=== PATIENT | male | born 1955 | race African-American/Black ===

== ENCOUNTER 2018-08-31 07:09 | Observation (INO) | payer OTHER ==
--- NOTE | 2018-08-31 07:53 | RAD ---
SINGLE VIEW OF THE CHEST: COMPARISON: 02/03/2016. HISTORY: Shortness of breath for several days. FINDINGS: A single view of the chest shows an enlarged but stable cardiomediastinal silhouette. The pacemaker is unchanged in position. There is no evidence of consolidation, mass, or pleural effusion. A bulle t projects over the mid thorax. IMPRESSION: No evidence of acute cardiopulmonary disease. POS: [facility]
[2018-08-31 07:55] LABS: #Basophils 0.1 thou/uL (0.0-0.2); #Eosinphils 0.1 thou/uL (0.0-0.7); #Lymphocytes 1.5 thou/uL (1.20-3.40); #Monocytes 1.1 thou/uL (0.11-0.59); #Neutrophils 10.6 thou/uL (1.40-6.50); %Basophils 0.8 % (0.0-1.0); %Eosinophils 0.6 % (0.0-10.0); %Monocytes 8.2 % (0.0-10.0); %Neutrophils 79.3 % (42.0-75.0); Hemoglobin 16.5 g/dL (14.0-18.0); Mean Corpuscular HGB CONC 32.5 g/dL (32.0-36.0); Mean Corpuscular Hemoglobin 29.9 pg (27.0-31.0); Mean Platelet Volume 9.9 fL (7.4-10.4); Platelet Count 176 thou/uL (130-400); RBC Distribution Width 14.4 % (11.5-14.5); White Blood Cell (WBC) Count 13.4 thou/uL (4.8-10.8)
[2018-08-31 08:10] LABS: ALT (SGPT) 26 U/L (8-55); AST (SGOT) 25 U/L (5-34); Albumin 4.3 g/dL (3.4-4.8); Alkaline Phosphatase 119 U/L (40-150); Anion Gap 17 mmol/L (10-20); BUN (Urea Nitrogen) 30 mg/dL (8.4-25.7); Bilirubin, Total 0.5 mg/dL (0.2-1.2); Calc. Creatinine Clearance 0 mL/min (70-130); Calcium 9.6 mg/dL (7.8-10.44); Carbon Dioxide 24 mmol/L (23-31); Chloride 102 mmol/L (98-107); Estimated GFR-MDRD 38; Globulin 4.4 g/dL (2.4-3.5); Glucose 112 mg/dL (80-115); Potassium 3.9 mmol/L (3.5-5.1); Protein, Total 8.7 g/dL (5.8-8.1); Sodium 139 mmol/L (136-145)
[2018-08-31 08:34] LABS: CKMB 5.6 ng/mL (0-6.6)
[2018-08-31] MEDS ORDERED: Aspirin Chewable 81 MG TAB ONE (09:04)
--- NOTE | 2018-08-31 09:12 | ULT ---
ULTRASOUND WITH DOPPLER DUPLEX VENOUS LOWER EXTREMITY RIGHT CPT: 13429 ICD-10-PCS: B54D HISTORY: Right lower extremity pain. TECHNIQUE: Color flow Doppler, spectral waveform analysis of pulsed Doppler, and gorman-scale imaging with dinah alvin and augmentation, were used to evaluate the right common femoral, femoral, popliteal, posterior tibial, and superficial femoral, veins; and the proximal portions of the profunda femoral and greater saphenous, veins. FINDINGS: There is appropriate compressibility and flow is documented within the deep venous structures of the right lower extremity. Dsp Engineer notes sluggish flow during the exam. There is evidence of soft tissue edema. IMPRESSION: 1. No discrete DVT of the right lower extremity is documented. 2. Soft tissue edema. Correlate clinically. POS: [facility]
[2018-08-31] MEDS ORDERED: Acetaminophen 500 MG TAB ONE (09:34)
[2018-08-31 10:32] LABS: Hemoglobin A1c 5.9 % (4.0-6.0)
[2018-08-31 11:00] LABS: Amphetamine Not Detected (NotDetected); Barbiturates Screen Not Detected (NotDetected); Benzodiazepine Screen Not Detected (NotDetected); Cocaine Metabolite Screen Not Detected (NotDetected); Medtox Control Line Valid? VALID (VALID); Medtox Reader # READER 4; Methadone Not Detected (NotDetected); Methamphetamine Not Detected (NotDetected); Opiate Screen Not Detected (NotDetected); Oxycodone Screen Not Detected (NotDetected); Phencyclidine (PCP) Not Detected (NotDetected); THC/Cannabinoid Screen Not Detected (NotDetected); Tricyclic Screen Not Detected (NotDetected)
--- NOTE | 2018-08-31 11:15 | PDOC.FPRHP ---
- History of Present Illness Chief Complaint: Rt knee pain, chest pain History of Present Illness: 62 yo M with PMH of CHF s/p AICD and pacemaker placement and angina presents to ED with complaint of R knee pain and chest pain that began yesterday evening. Patient reports his left knee began hurting 2 days ago, and his R knee began hurting last night and became swollen and painful, so much so that he cannot walk on it. No history of trauma or this happening previously, denies hx of STIs. Denied fevers. He reports substernal chest pressure that is non-radiating, worse when he moves his right knee. He reports he has been SOB when walking around. Denies nausea/ vomiting, reports diaphoresis on his neck at night. Chest pain had resolved by the time he arrived to ED, however with moving his leg it worsens. He also reports he has recently lost about 20 lbs and "my neck sweats" at night, regardless of temperature of environment. In ED, EKG showed paced rhythm. CXR showed stable cardiomegaly. US of RLE negative DVT, showed soft tissue edema. Trop indeterminate. - Allergies/Adverse Reactions Allergies Allergy/AdvReac Type Severity Reaction Status Date / Time No Known Drug Allergies Allergy Verified 06/30/15 13:59 - Home Medications Medication Instructions Recorded Confirmed Type Clopidogrel Bisulfate [Plavix] 75 mg PO DAILY #0 tab 04/06/15 08/31/18 Rx Amiodarone [Cordarone] 200 mg PO DAILY #0 tab 09/02/15 08/31/18 Rx Carvedilol [Coreg] 12.5 mg PO BID-WM 08/31/18 08/31/18 History Furosemide [Lasix] 80 mg PO BID 08/31/18 08/31/18 History - History PMHx: CHF with EF 10-15% in 2016, s/p AICD and pacemaker; HTN, Angina PSHx: AICD/pacemaker placement FHx: father of [place] and CHF, mGF of unknown cancer, DM in father family Social: reports no cocaine use for past 1 year and no IVDA; alcohol about 12 beers/week, last one was 06/28 around 1400; current every day smoker 1/4 pack, 10 PY history - Review of Systems General: denies: fever/chills, weight/appetite/sleep changes (had decreased weight of 20 lbs) Eyes: reports: vision changes. denies: eye pain ENT: reports: nasal congestion, rhinorrhea Respiratory: reports: cough, congestion, shortness of breath, exercise intolerance Cardiovascular: reports: chest pain, edema. denies: palpitation Gastrointestinal: denies: nausea, vomiting, diarrhea, constipation, abdominal pain, GI bleeding Genitourinary: denies: dysuria, polyuria Skin: denies: rashes, lesions Musculoskeletal: reports: tenderness, stiffness, arthritis/arthralgias Neurological: denies: numbness, weakness Psychological: reports: anxiety. denies: depression - Vital signs BP: [123/94] HR: [73] RR: [16] Tmax: [98.1] Pox: [93]% on [RA] Wt: [88 kg] - Physical Exam Constitutional: NAD, awake, alert and oriented HEENT: normocephalic and atraumatic, PERRLA, grossly normal hearing, MMM, oropharynx clear Neck: supple, other (+cervical LAD) Heart: RRR, normal S1/S2, no murmurs/rubs/gallops, pulses present (radial pulses present), other Lungs: CTAB, no respiratory distress, good air movement, no wheezing Abdomen: soft, bowel sounds present, no masses/distention Musculoskeletal: normal tone, other (Rt knee diffusely swollen, warm to touch, no erythema. Excessively painful to palpation or manipulation.) Neurological: no focal deficit Skin: no rash/lesions -Skin: Cap refill prolonged in BLE. BLE cool to touch, unable to palpate dorsalis pedis pulses or posterior tibial artery Heme/Lymphatic: no unusual bruising or bleeding Psychiatric: normal mood and affect, good judgment and insight, intact recent and remote memory FMR H&P: Results - Labs Result Diagrams: 08/31/18 07:37 08/31/18 07:37 Lab results: WBC 13.4 thou/uL (4.8-10.8) H 08/31/18 07:37 Hgb 16.5 g/dL (14.0-18.0) 08/31/18 07:37 Hct 50.6 % (42.0-52.0) 08/31/18 07:37 MCV 92.0 fL (78.0-98.0) 08/31/18 07:37 Plt Count 176 thou/uL (130-400) 08/31/18 07:37 Neutrophils % 79.3 % (42.0-75.0) H 08/31/18 07:37 ESR Westergren 61 mm/hr (Less than 20) 08/31/18 09:25 Sodium 139 mmol/L (136-145) 08/31/18 07:37 Potassium 3.9 mmol/L (3.5-5.1) 08/31/18 07:37 Chloride 102 mmol/L (98-107) 08/31/18 07:37 Carbon Dioxide 24 mmol/L (23-31) 08/31/18 07:37 BUN 30 mg/dL (8.4-25.7) H 08/31/18 07:37 Creatinine 2.13 mg/dL (0.7-1.3) H 08/31/18 07:37 Glucose 112 mg/dL (80-115) 08/31/18 07:37 Calcium 9.6 mg/dL (7.8-10.44) 08/31/18 07:37 Total Bilirubin 0.5 mg/dL (0.2-1.2) 08/31/18 07:37 AST 25 U/L (5-34) 08/31/18 07:37 ALT 26 U/L (8-55) 08/31/18 07:37 Alkaline Phosphatase 119 U/L (40-150) 08/31/18 07:37 CK-MB (CK-2) 5.6 ng/mL (0-6.6) 08/31/18 07:37 C-Reactive Protein 3.05 mg/dL (= or < 0.5) H 08/31/18 09:25 B-Natriuretic Peptide 331.0 pg/mL (0-100) H 08/31/18 07:41 Serum Total Protein 8.7 g/dL (5.8-8.1) H 08/31/18 07:37 Albumin 4.3 g/dL (3.4-4.8) 08/31/18 07:37 - EKG Interpretation EKG: paced rhythm - Radiology Interpretation Chest x-ray Status: report reviewed by me Additional comment: stable cardiomegaly US - venous Status: report reviewed by me Additional comment: No DVT, +soft tissue edema FMR H&P: A/P - Problem List (1) Chest pain Current Visit: No Status: Acute Code(s): R07.9 - CHEST PAIN, UNSPECIFIED Qualifiers: Chest pain type: precordial chest pain Comment: Prob musculoskeletal (2) Congestive heart failure Current Visit: Yes Status: Chronic Code(s): I50.9 - HEART FAILURE, UNSPECIFIED (3) Tobacco abuse Current Visit: No Status: Chronic Code(s): Z72.0 - TOBACCO USE Comment: Recommend permanent cessation. He has cut down signficantly over the last 5 months. Occasional cannabis use as well. (4) CKD (chronic kidney disease) stage 3, GFR 30-59 ml/min Current Visit: No Status: Chronic Comment: Stable (5) HTN (hypertension) Current Visit: No Status: Chronic Code(s): I10 - ESSENTIAL (PRIMARY) HYPERTENSION - Plan Elevated Troponins, likely demand ischemia -CHF with EF 10-15% in 2016; s/p AICD and pacemaker placement -no evidence fluid overload on CXR -No tachycardia, so unlikely to be a PE -EKG shows paced rhythm -Patient has substernal chest pain, and SOB w/ exertion -Trop .101, trending -BNP 331 -Pt reports history of angina -Consulted cardiology Dr. Andersen, recommendations appreciated -continue furosemide, carvedilol, amiodarone, an clopidogrel Rt knee edema -No history of trauma -Concern for septic arthritis with leukocytosis, however he is afebrile; consider Gout vs CPPD -XR 2V pending -Arthrocentesis: cell count with dif, crystals, and g stain with culture pending -Sono RLE neg for DVT CKD3B -aware -heparin for PPX HTN -Continue home medication Tobacco Abuse -cessation Alcohol use -ASE protocol Hx Cocaine use -last use 1 yr ago -UDS neg Dispo: admit to tele obs Code: Full code PCP: in [place] Diet: HH FMR H&P: Upper Level - Pertinent history 62 y/o M with CAD, HLD, CKD, CHF, afib, and hx/o cocaine abuse presenting from out of town with chest and knee pain. Knee pain began yesterday on R and is swollen. States he has chest pain when he moves this knee, and does not have chest pain at any other time, although he does have a history of angina. States his butt trimmer is in [place] and follows with him, but does not have a PCP. States he stopped cocaine. Denies any SOB, palpitations, dizziness, decreased activity, fatigue, weakness, and exertional dyspnea. - Pertinent findings PHYSICAL EXAM: GEN: NAD CARDIO: RRR, no MRG LUNGS: lungs CTAB, no wheezes, ronchi MSK: R knee effusion and ttp, pulses not palpable in LE Troponins: 0.1 and 0.108. LE US: Soft tissue swelling, no evidence of DVT CXR: no evidence of acute process CR increased and GFR abnormal: CKD EKG: No ST changes - Plan Date/Time: 08/31/18 1115 Shayan Thorne have evaluated this patient and agree with findings/plan as outlined by multicultural internship resident. Pertinent changes/additions are listed here. 1. Stable Angina: CAD per history. Will follow indeterminate troponins and consult cardiology. EKG reviewed and no ST segment changes. Uncertain why he would have chest pain when moving his R leg. 2. Joint Effusion: arthrocentesis performed in ED and samples sent for cell counts, culture, and crystal analysis. Pseudogout vs septic arthritis vs tissue injury. US LE have r/o DVT, but did report soft tissue edema. 3. CAD: As Above 4. HRrEF: 10-15% in 2016, however was using cocaine at that time. Will order ECHO and cardiology. BNP 330 which is likely near baseline. Not fluid overloaded or in respiratory distress. 5. CKD4: GFR CKD3B stage today. Will trend renal function labs. Gentle fluids as needed in case there is acute injury also, will hold fluids until after ECHO. 6. Hx/o substance abuse: UDS neg and has reportedly stopped cocaine abuse 7. Impaired circulation: Pulses not palpable in LE, cold, and frequent calf cramping. Will consider further workup regarding PVD. Limbs not ischemic. 8. ETOH abuse: states 3 drinks QOD. ASE protocol. Addendum - Attending - Attending Attestation Date/Time: 08/31/18 9123 I personally evaluated the patient and discussed the management with Dr. Lane I agree with the History, Examination, Assessment and Plan documented above with any addition or exceptions noted below. Atypical CP with history angina and significant HFref low Ef 10-15 % s/p AICD, r/o septic joint. Consultation with Cardiology control BS expectant management.
[2018-08-31 11:34] LABS: Troponin I 0.108 ng/mL (< 0.028)
[2018-08-31] MEDS ORDERED: Lidocaine 1% w/Epinephrine 1:100K 20 ML VIAL ONE (11:40)
[2018-08-31 12:25] LABS: BF Color Yellow; Body Fluid Source Synovial Fluid; Clarity Cloudy/Turbid (Clear); Tube # 1
[2018-08-31 12:27] LABS: RBC Count-Automated 22000 /cumm; WBC/NonHematic-Auto 18580 /cumm
[2018-08-31 12:50] LABS: BF Segmented Neutrophils 86 %; Cell Count Non Hematic 14 %
--- NOTE | 2018-08-31 13:32 | PDOC.EVN ---
Event Note - Event Note Event Note: Procedure: Knee arthrocentesis Date: 08/31/18 @ 1200 Physician: Dr. Becka Lawton Attending: Dr. Yin overseeing Consent for Rt knee Arthrocentesis, Risks and benefits discussed with patient and written and verbal consent obtained. The R Knee was prepped. Anesthesia: 5 cc of 2% Lidocaine with epi. Site prepared in sterile fashion. Wheel of lidocaine placed. Lidocaine then introduced into the joint space. Fluid was removed from the joint space. Samples were sent to the lab for analysis. Clear yellow colored was fluid removed. Amount of fluid removed: 30 cc. Estimated Blood Loss: minimal. Complications: The patient tolerated the procedure well without complications. Hilary Lawton, PGY-1
[2018-08-31] MEDS ORDERED: Heparin 5,000 UNITS/ML VIAL SC SCH (15:00)
[2018-08-31 17:49] LABS: Troponin I 0.074 ng/mL (< 0.028)
[2018-08-31] MEDS: Carvedilol 6.25 MG TAB PO SCH (19:10)
[2018-08-31] MEDS ORDERED: Furosemide 80 MG TAB PO SCH (20:15)
[2018-08-31] MEDS: Heparin 5,000 UNITS/ML VIAL SC SCH (20:38)
[2018-08-31] MEDS: Acetaminophen 325 MG TAB PO PRN (21:57)
--- NOTE | 2018-09-01 04:56 | CON ---
DATE OF CONSULTATION: HISTORY OF PRESENT ILLNESS: The patient is a 62-year-old gentleman with a history of cardiomyopathy, who presents with recurrent chest discomfort. The patient has a long history of cardiomyopathy. He has had previously placed of an automatic implantable cardiac defibrillator. The patient has been in multiple occasions with chest pain. He has declined to undergo cardiac catheterization. He stated yesterday that his knee started hurting him. He subsequently developed mid sternal chest discomfort. This lasted for several hours. The patient denies having any present chest discomfort. PAST MEDICAL HISTORY: 1. Cardiomyopathy. 2. Hypertension. 3. Chronic renal insufficiency. 4. Hypertension. 5. Dyslipidemia. 6. Bipolar disorder. PAST SURGICAL HISTORY: None. MEDICATIONS: See nursing list. SOCIAL HISTORY: The patient continues to smoke. He drinks excessive amounts of alcohol. He denies any recent cocaine use. FAMILY HISTORY: Strong family history of heart disease. ALLERGIES: NO KNOWN DRUG ALLERGIES. REVIEW OF SYSTEMS: Ten-point system otherwise unremarkable. PHYSICAL EXAMINATION: GENERAL: Middle-aged gentleman, no acute distress. VITAL SIGNS: Blood pressure of 124/94. NECK: Showed no jugular venous distention. No carotid bruits. LUNGS: Clear to auscultation. HEART: Regular rate and rhythm. Normal S1 and S2. No murmurs. ABDOMEN: Distended. EXTREMITIES: Showed no edema. VASCULAR: Radial pulse 2+. LABORATORY DATA: Sodium 139, potassium 3.9, chloride 102, bicarbonate 24, BUN 30, creatinine is 2.1. Troponin 0.108. White blood cell count 13.4, hemoglobin 16.5, hematocrit 50.6, and platelets 176. EKG revealed normal sinus rhythm with an electronic ventricular pacemaker. IMPRESSION: 1. Chest pain. 2. Cardiomyopathy. 3. Hypertension. 4. History of automated implantable cardioverter-defibrillator placement. 5. History of ventricular tachycardia. 6. Tobacco abuse. 7. Substance abuse. This gentleman has a history of a cardiomyopathy. He presents with chest discomfort with knee pain. The patient previously declined to undergo an invasive evaluation. Would monitor the patient. Serial cardiac enzymes will be obtained. We will follow this patient with you through his hospitalization. Job ID: [id number] MTDD
--- NOTE | 2018-09-01 05:25 | PDOC.FM ---
- Subjective Subjective: Patient states his pain is increased this AM to 710, was feeling better yesterday after the arthrocentesis. No other complaints this morning. - Objective Vital Signs & Weight: Vital Signs (12 hours) Temp Pulse Resp BP BP Pulse Ox 09/01/18 05:03 97.8 F 62 14 117/75 96 08/31/18 21:56 139/88 08/31/18 19:36 97.5 F L 63 16 139/88 98 08/31/18 17:56 120/85 Weight Weight 82.1 kg I&O: 08/30/18 08/31/18 09/01/18 06:59 06:59 06:59 Intake Total 480 Balance 480 Result Diagrams: 09/01/18 04:40 09/01/18 04:40 Phys Exam - Physical Examination Constitutional: NAD Respiratory: no wheezing, clear to auscultation bilateral Cardiovascular: RRR, no significant murmur Gastrointestinal: soft, non-tender, no distention, positive bowel sounds trace pitting edema in ankles bilat, pain and warmth in right knee swelling rt knee, BLE warm but unable to palpate pulses Neurological: moves all 4 limbs Psychiatric: normal affect, A&O x 3 Skin: normal turgor Dx/Plan (1) Chest pain Code(s): R07.9 - CHEST PAIN, UNSPECIFIED Status: Acute Qualifiers: Chest pain type: precordial chest pain (2) Congestive heart failure Code(s): I50.9 - HEART FAILURE, UNSPECIFIED Status: Chronic (3) Tobacco abuse Code(s): Z72.0 - TOBACCO USE Status: Chronic (4) CKD (chronic kidney disease) stage 3, GFR 30-59 ml/min Status: Chronic (5) HTN (hypertension) Code(s): I10 - ESSENTIAL (PRIMARY) HYPERTENSION Status: Chronic - Plan Plan: Elevated Troponins, likely demand ischemia -CHF with EF 10-15% in 2016; s/p AICD and pacemaker placement -no evidence fluid overload on CXR -No tachycardia, so unlikely to be a PE -EKG shows paced rhythm -Patient has substernal chest pain, and SOB w/ exertion -Trops downtrending -BNP 331 -Pt reports history of angina -Consulted cardiology Dr. Andersen, recommendations appreciated -Patient has previously refused invasive evaluation -continue furosemide, carvedilol, amiodarone, an clopidogrel Rt knee edema -No history of trauma -Concern for septic arthritis with leukocytosis, however he is afebrile; consider Gout vs CPPD -Rt knee XR 2V pending -Arthrocentesis: cell count with dif, crystals, and g stain with culture pending -WBC <25,000, therefore unlikely to be a septic joint; culture pending -Sono RLE neg for DVT CKD3B -aware -BUN/Cr slight uptrend today, continue to monitor -heparin for PPX Hypokalemia, slight -Monitor and replace as needed HTN -Continue home medication Tobacco Abuse -cessation Alcohol use -ASE protocol Hx Cocaine use -last use 1 yr ago -UDS neg Dispo: admit to tele obs Code: Full code PCP: in [place] Diet: CRESCENCIO Addendum - Attending - Attending Attestation Date/Time: 09/01/18 0391 I personally evaluated the patient and discussed the management with Dr. Weir I agree with the History, Examination, Assessment and Plan documented above with any addition or exceptions noted below.will start prednisone today and increase ambulation synovial fluid r/o septic jt, negative crystals feel working DX with bilateral knee symptoms as Rheumatoid consider reactive arthritis as well. Rec f/u with Rheumatology as outpatient. Observe overnight for response steroids.
[2018-09-01] MEDS: Acetaminophen 325 MG TAB PO PRN ×4 (05:38→23:25)
[2018-09-01 06:26] LABS: #Eosinphils 0.2 thou/uL (0.0-0.7); #Lymphocytes 1.7 thou/uL (1.20-3.40); #Monocytes 0.9 thou/uL (0.11-0.59); #Neutrophils 6.2 thou/uL (1.40-6.50); %Basophils 0.5 % (0.0-1.0); %Eosinophils 1.9 % (0.0-10.0); %Monocytes 10.1 % (0.0-10.0); %Neutrophils 68.4 % (42.0-75.0); Hemoglobin 15.2 g/dL (14.0-18.0); Mean Corpuscular HGB CONC 32.4 g/dL (32.0-36.0); Mean Corpuscular Hemoglobin 30.3 pg (27.0-31.0); Mean Corpuscular Volume 93.5 fL (78.0-98.0); Mean Platelet Volume 10.9 fL (7.4-10.4); Platelet Count 142 thou/uL (130-400); RBC Distribution Width 14.6 % (11.5-14.5); Red Blood Cell (RBC) Count 5.03 mill/uL (4.70-6.10); White Blood Cell (WBC) Count 9.1 thou/uL (4.8-10.8)
[2018-09-01 06:45] LABS: Anion Gap 16 mmol/L (10-20); BUN (Urea Nitrogen) 36 mg/dL (8.4-25.7); Calc. Creatinine Clearance 39 mL/min (70-130); Calcium 9.7 mg/dL (7.8-10.44); Carbon Dioxide 24 mmol/L (23-31); Chloride 101 mmol/L (98-107); Estimated GFR-MDRD 35; Glucose 94 mg/dL (80-115); Potassium 3.4 mmol/L (3.5-5.1); Sodium 138 mmol/L (136-145)
[2018-09-01] MEDS ORDERED: Potassium Chloride 20 MEQ TAB PO SCH (08:45)
[2018-09-01] MEDS: Carvedilol 6.25 MG TAB PO SCH ×2 (09:27→18:11)
[2018-09-01] MEDS: Amiodarone 200 MG TAB PO SCH (09:28)
[2018-09-01] MEDS: Heparin 5,000 UNITS/ML VIAL SC SCH ×2 (09:28→21:47)
[2018-09-01] MEDS: Furosemide 80 MG TAB PO SCH ×2 (09:28→14:36)
[2018-09-01] MEDS: Aspirin 325 mg Enteric Coated Tablet PO SCH (09:28)
[2018-09-01] MEDS: Clopidogrel Bisulfate 75 MG TAB PO SCH (09:28)
--- NOTE | 2018-09-01 10:17 | RAD ---
TWO VIEW RIGHT KNEE: Indication: Pain. FINDINGS: There is heterotopic density adjacent the medial femoral condyle. Moderate joint capsular distension is seen. There is mild osteoarthritis. Vascular calcifications are present. IMPRESSION: 1. Corticated appearing heterotopic density adjacent the medial femoral condyle which may therefore r elate to a remote process. Correlate clinically. 2. There is moderate joint capsular distention of the suprapatellar bursa. POS: [facility]
[2018-09-01] MEDS ORDERED: predniSONE 20 MG TAB PO SCH (13:00)
[2018-09-01 14:14] VITALS: BMI 29.2
[2018-09-02] MEDS ORDERED: Acetaminophen 325 MG TAB PO SCH (04:45)
--- NOTE | 2018-09-02 05:57 | PDOC.FM ---
- Subjective Subjective: Patient reports knee pain is 5/10 today, improved from yesterday with the steroids and pain management. Patient needs a cane to be able to get up the stairs at his home. - Objective Vital Signs & Weight: Vital Signs (12 hours) Temp Pulse Resp BP BP Pulse Ox 09/02/18 04:00 97.8 F 64 19 147/88 H 147/88 H 97 09/01/18 23:52 98.0 F 64 19 116/69 116/69 96 09/01/18 19:46 97.9 F 64 18 115/65 94 L Weight Admit Weight 81.012 kg Weight 183.5 g I&O: 08/31/18 09/01/18 09/02/18 06:59 06:59 06:59 Intake Total 880 860 Output Total 300 Balance 880 560 Result Diagrams: 09/02/18 04:22 09/02/18 04:22 Phys Exam - Physical Examination Constitutional: NAD Respiratory: no wheezing, no rales Cardiovascular: RRR, no significant murmur Gastrointestinal: soft, non-tender, no distention, positive bowel sounds Musculoskeletal: pulses present swelling around right knee, no erythema. Tender to palpation. Patient seems to be able to move leg with less pain today Neurological: non-focal, moves all 4 limbs Psychiatric: normal affect, A&O x 3 Skin: normal turgor, cap refill <2 seconds Dx/Plan (1) Knee pain, acute Code(s): M25.569 - PAIN IN UNSPECIFIED KNEE Status: Acute (2) Chest pain Code(s): R07.9 - CHEST PAIN, UNSPECIFIED Status: Acute Qualifiers: Chest pain type: precordial chest pain (3) Congestive heart failure Code(s): I50.9 - HEART FAILURE, UNSPECIFIED Status: Chronic (4) Cocaine abuse Code(s): F14.10 - COCAINE ABUSE, UNCOMPLICATED Status: Resolved (5) Tobacco abuse Code(s): Z72.0 - TOBACCO USE Status: Chronic (6) CKD (chronic kidney disease) stage 3, GFR 30-59 ml/min Status: Chronic (7) HTN (hypertension) Code(s): I10 - ESSENTIAL (PRIMARY) HYPERTENSION Status: Chronic - Plan Plan: Rt knee swelling, concern for arthritis -No history of recent trauma -Rt knee XR 2V: Joint capsular distension and old injury -Arthrocentesis: cell count with dif, crystals, and g stain with culture -WBC <25,000, therefore unlikely to be a septic joint; culture NGTD -No crystals, unlikely to be Gout/CPPD -Rheumatoid Arthritis panel pending -Cane today, work on mobility prior to discharge Elevated Troponins, likely demand ischemia -CHF with EF 10-15% in 2016; s/p AICD and pacemaker placement -no evidence fluid overload on CXR -No tachycardia, so unlikely to be a PE -EKG shows paced rhythm -Patient has substernal chest pain, and SOB w/ exertion -Trops downtrending -BNP 331 -Pt reports history of angina -Consulted cardiology Dr. 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 Yolie Lawton I agree with the History, Examination, Assessment and Plan documented above with any addition or exceptions noted below. Patient feeling better ambulating better will arrange for cane and establish with PCP. Rec short term prednisone pending further outpt f/u results. BNP at f/u monitor RFT . Rheumatology f/u as outpat.
[2018-09-02 06:01] LABS: Anion Gap 16 mmol/L (10-20); BUN (Urea Nitrogen) 43 mg/dL (8.4-25.7); Calc. Creatinine Clearance 0 mL/min (70-130); Calcium 9.9 mg/dL (7.8-10.44); Carbon Dioxide 22 mmol/L (23-31); Chloride 102 mmol/L (98-107); Estimated GFR-MDRD 32; Glucose 110 mg/dL (80-115); Potassium 4.3 mmol/L (3.5-5.1); Sodium 136 mmol/L (136-145)
[2018-09-02 06:19] LABS: #Basophils 0.1 thou/uL (0.0-0.2); #Lymphocytes 0.8 thou/uL (1.20-3.40); #Monocytes 0.9 thou/uL (0.11-0.59); #Neutrophils 9.9 thou/uL (1.40-6.50); %Basophils 0.6 % (0.0-1.0); %Eosinophils 0.2 % (0.0-10.0); %Monocytes 7.7 % (0.0-10.0); %Neutrophils 84.5 % (42.0-75.0); Hemoglobin 15.3 g/dL (14.0-18.0); Mean Corpuscular Hemoglobin 30.4 pg (27.0-31.0); Mean Corpuscular Volume 94.9 fL (78.0-98.0); Mean Platelet Volume 10.6 fL (7.4-10.4); Platelet Count 152 thou/uL (130-400); Platelet Morphology Comment Appears Adequate; RBC Distribution Width 14.6 % (11.5-14.5); RBC Morphology Normal; Red Blood Cell (RBC) Count 5.04 mill/uL (4.70-6.10); White Blood Cell (WBC) Count 11.7 thou/uL (4.8-10.8)
[2018-09-02] MEDS ORDERED: predniSONE 20 MG TAB PO SCH (08:00)
[2018-09-02] MEDS: Aspirin 325 mg Enteric Coated Tablet PO SCH (08:13)
[2018-09-02] MEDS: Furosemide 80 MG TAB PO SCH (08:13)
[2018-09-02] MEDS: Carvedilol 6.25 MG TAB PO SCH (08:13)
[2018-09-02] MEDS: Clopidogrel Bisulfate 75 MG TAB PO SCH (08:14)
[2018-09-02] MEDS: Heparin 5,000 UNITS/ML VIAL SC SCH (08:14)
[2018-09-02] MEDS: Amiodarone 200 MG TAB PO SCH (08:14)
[2018-09-02] MEDS ORDERED: traMADol HCl 50 MG TAB PO PRN (08:16)
[2018-09-02] MEDS ORDERED: hydrALAZINE 25 MG TAB PO SCH (09:00)
[2018-09-02] MEDS ORDERED: Isosorbide Dinitrate 20 MG TAB PO SCH (09:00)
[2018-09-02 11:46] VITALS: BP 128/88; TEMP 98
[2018-09-02 17:29] LABS: CCP IgG Antibody 0.6 EliAU/mL (<7 Negative); EliA RAS New Method **** NEW METHOD ****; Rheumatoid Factor IgM Antibody 3.3 IU/mL (<3.5 Negative)
--- NOTE | 2018-09-04 05:14 | DIS ---
DATE OF ADMISSION: 08/31/2018 DATE OF DISCHARGE: 09/02/2018 ADMITTING ATTENDING: Shekhar Yin M.D. DISCHARGE ATTENDING: Dr. Helio Yin M.D. RESIDENT: Hilary Lawton M.D. CONSULTS: Cardiology, Dr. Leonard Andersen on 08/31/2018. PROCEDURES: 1. Chest x-ray 08/31/2018 showed no acute cardiopulmonary process. 2. Vascular ultrasound 08/31/2018, no evidence of DVT in the right lower extremity. Soft tissue edema present. 3. Knee x-ray, 09/01/2018. a. Corticated appearing heterotopic density adjacent to the medial femoral condyle. b. Moderate joint capsular distention of the suprapatellar bursa. 4. Echocardiogram 09/02/2018 showed ejection fraction of 15-20 percent. Normal size left atrium. Left ventricular size is moderately increased. Impaired relaxation compatible with diastolic dysfunction. Mild mitral regurge. Pacer wire visualized in the right ventricle. PRIMARY DIAGNOSIS: Inflammatory arthritis of the right knee. SECONDARY DIAGNOSES: 1. Elevated troponin likely secondary to demand ischemia. 2. Acute kidney injury on chronic kidney disease, 3B. 3. Hypokalemia. 4. Hypertension. 5. Tobacco abuse. 6. Alcohol use. 7. History of cocaine use. DISCHARGE MEDICATIONS: 1. Amiodarone 200 mg p.o. daily. 2. Carvedilol 25 mg b.i.d. with meals. 3. Clopidogrel 75 mg p.o. daily. 4. Furosemide 80 mg p.o. b.i.d. 5. Hydralazine 37.5 mg p.o. t.i.d. 6. Isordil 20 mg p.o. t.i.d. 7. Prednisone 40 mg p.o. with breakfast, take 40 mg for five days, then 20 mg on day 6 through 9 and then 10 mg on days 10 through 13. 8. Tramadol 50 mg p.o. q.6 hours p.r.n. for pain. 9. Clopidogrel 75 mg p.o. daily. 10. Amiodarone 200 mg p.o. daily. DISCONTINUED MEDICATIONS: None. HISTORY OF PRESENT ILLNESS AND HOSPITAL COURSE: The patient is a 62-year-old male with past medical history of congestive heart failure status post AICD and pacemaker placement and angina, who presented to the ED with complaint of right knee pain and chest pain that began the evening prior. The patient reports his left knee had started hurting 2 days ago and that had improved. His right knee began hurting last night and became swollen and painful so much so that he cannot walk on it. No history of trauma. He denied history of sexually transmitted infection. Denied fevers. He also reported a substernal chest pressure that was nonradiating, worse when he moved his right knee. He reports he had been having increased shortness of breath with exertion. Denied nausea or vomiting. Reported diaphoresis on his neck at night. Chest pain had resolved by the time he arrived to the ED; however, it returns when he moves his leg. He also reported he recently lost about 20 pounds. In the ED, EKG showed paced rhythm. Chest x-ray showed stable cardiomegaly. Ultrasound of right lower extremity was negative for a DVT that showed soft tissue edema. His stroke was indeterminate. X-ray of his knee showed joint capsular distention and old injury. Arthrocentesis revealed that it was not a septic joint and no crystals were seen. This is thought to likely be rheumatoid arthritis. Rheumatoid arthritis workup was started and is pending. Thae patient was discharged with a prednisone taper. Obtained prescription as well as instructions to follow up with his PCP. He was also given a prescription for a cane to assist with ambulation. The patient has congestive heart failure with an ejection fraction of 10-15 percent in 2016. Followup echo during his stay showed improved ejection fraction of 15- 20 percent. His strips were downtrending during his stay. It was likely that indeterminate troponin was elevated secondary to demand ischemia. Dr. Andersen/Matthew was consulted and reported the patient had previously refused invasive evaluation. He was started on Bidil and will follow up with cardiology. The patient developed an JEANETTE on CKD 3B. His BUN and creatinine were slightly up trending. This was thought to be secondary to strict fluid restriction of 1800 mL during his stay, where the patient normally takes more fluids at home. Hypokalemia. His potassium was monitored and replaced as needed. The patient also reported a history of cocaine use, but reported he had discontinued using it 1 year prior. UDS is negative during his stay. Recommend the patient to follow up with PCP to recheck electrolytes with a BMP and for further workup of possible rheumatoid arthritis. DISCHARGE DISPOSITION: Stable. DISCHARGE INSTRUCTIONS: 1. Location: Home. 2. Diet: Heart healthy. 3. Activity: As tolerated. 4. Followup: Follow up with Dr. Hilary Lawton in 7 days at [facility]. Follow up with Dr. Damien Castro on October 13 at 9 a.m. Job ID: [id number] MTDD
== END 2018-09-02 13:53 | disposition home or self-care (01) ==
LOC: ERS 07:09 → ERHOLD 09:09 → 2SW 15:25
PROVIDERS: ADMIT Family Medicine; ATTEND Family Medicine
DX: M17.11 Unilateral primary osteoarthritis, right knee (principal); R79.89 Other specified abnormal findings of blood chemistry; I13.0 Hypertensive heart and chronic kidney disease with heart failure and stage 1 through stage 4 chronic kidney disease, or unspecified chronic kidney disease; N18.3 Chronic kidney disease, stage 3 (moderate); I50.9 Heart failure, unspecified; N17.9 Acute kidney failure, unspecified; I25.118 Atherosclerotic heart disease of native coronary artery with other forms of angina pectoris; E87.6 Hypokalemia; E78.5 Hyperlipidemia, unspecified; F31.9 Bipolar disorder, unspecified; F17.200 Nicotine dependence, unspecified, uncomplicated; Z95.810 Presence of automatic (implantable) cardiac defibrillator; Z79.02 Long term (current) use of antithrombotics/antiplatelets; Z79.52 Long term (current) use of systemic steroids; Z79.899 Other long term (current) drug therapy
CPT/HCPCS: 36415; 71045; 80048; 80053; 80306; 82553; 83036; 83520; 83880; 84484; 85025; 85060; 85652; 86140; 86200; 87070; 87205; 89051; 89060; 93005; 93306; 94760; G0378; J1644; J2001

== ENCOUNTER 2018-11-22 11:22 | Emergency (ER) | payer OTHER ==
[2018-11-22] MEDS ORDERED: Dexamethasone 4 mg/ml Vial ONE (14:33)
[2018-11-22] MEDS ORDERED: HYDROcodone/Acetaminophen 5/325 mg Tablet ONE (14:33)
--- NOTE | 2018-11-22 14:43 | RAD ---
RIGHT KNEE 4 VIEWS: Date: 11/22/18 HISTORY: Right knee pain. COMPARISON: 09/01/18. FINDINGS: Large area of calcific or ossific focus adjacent to the medial femoral epicondylar region, probably a large enthesophyte or focal area of myositis ossificans. No evidence for acute fracture or dislocati on. Minimal increased density in the suprapatellar region, possibly some joint effusion. IMPRESSION: Evidence for some joint effusion. Stable medial femoral area of prominent enthesophyte or focal area of myositis ossificans. No fracture or dislocation, or other acute process. Stable from prior study. POS: TPC
== END 2018-11-22 15:07 | disposition home or self-care (01) ==
LOC: ERS 11:22
DX: M25.561 Pain in right knee (principal); M25.532 Pain in left wrist; M25.571 Pain in right ankle and joints of right foot; F17.210 Nicotine dependence, cigarettes, uncomplicated; I11.0 Hypertensive heart disease with heart failure; I50.9 Heart failure, unspecified; Z79.899 Other long term (current) drug therapy
CPT/HCPCS: J1100

== ENCOUNTER 2020-09-05 11:57 | Inpatient (IN) | payer OTHER ==
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
[2020-09-05 13:32] LABS: #Eosinphils 0.1 thou/uL (0.0-0.7); #Lymphocytes 1.4 thou/uL (1.20-3.40); #Neutrophils 9.7 thou/uL (1.40-6.50); %Basophils 0.1 % (0.0-1.0); %Eosinophils 0.9 % (0.0-10.0); %Lymphocytes 11.8 % (21.0-51.0); %Monocytes 8.1 % (0.0-10.0); %Neutrophils 79.1 % (42.0-75.0); Hemoglobin 16.1 g/dL (14.0-18.0); Mean Corpuscular HGB CONC 33.2 g/dL (32.0-36.0); Mean Corpuscular Hemoglobin 30.4 pg (27.0-31.0); Mean Corpuscular Volume 91.5 fL (78.0-98.0); Platelet Count 144 thou/uL (130-400); RBC Distribution Width 14.2 % (11.5-14.5); White Blood Cell (WBC) Count 12.2 thou/uL (4.8-10.8)
[2020-09-05 13:40] LABS: Anion Gap 18 mmol/L (10-20); BUN (Urea Nitrogen) 54 mg/dL (8.4-25.7); Calc. Creatinine Clearance 0 mL/min (70-130); Carbon Dioxide 20 mmol/L (23-31); Chloride 102 mmol/L (98-107); Potassium 4.2 mmol/L (3.5-5.1); Sodium 136 mmol/L (136-145)
[2020-09-05 13:41] LABS: ALT (SGPT) 26 U/L (8-55); AST (SGOT) 75 U/L (5-34); Albumin 4.2 g/dL (3.4-4.8); Alkaline Phosphatase 89 U/L (40-110); Bilirubin, Total 0.6 mg/dL (0.2-1.2); Calcium 9.5 mg/dL (7.8-10.44); Globulin 4.7 g/dL (2.4-3.5); Glucose 102 mg/dL (80-115); Protein, Total 8.9 g/dL (5.8-8.1)
[2020-09-05 14:05] LABS: CKMB 22.8 ng/mL (0-6.6)
[2020-09-05] MEDS ORDERED: Morphine 2 MG/ML VIAL ONE (14:26)
[2020-09-05] MEDS ORDERED: Furosemide 100 MG/10 ML VIAL SLOW IVP SCH (16:15)
--- NOTE | 2020-09-05 16:17 | PDOC.HHP ---
Hospitalist HPI Foot pain History of Present Illness: Mr. Estrella is a 64-year-old male with past medical history of HFrEF (EF of 15 to 20% on 2019 echo), AICD in place, hypertension, hyperlipidemia, CKD baseline creatinine 2.5 who presents emergency room for bilateral foot pain. Patient reports that over the past few days he has had increased swelling to both of his feet and has severe pain in both great toe joints bilaterally. Patient reports he previously had bilateral knee swelling which he had drained as an outpatient. Reports his pain feels similarly. Denies shortness of breath, chest pain or abdominal pain. Denies fever chills or night sweats. No numbness weakness or paresthesias. Reports his foot pain is worse when he hangs his feet. In emergency room initial vital signs 125/88, 83, 18, 96% on room air, 98.0. H/H 16.1/48.8, WBC 12.2. BUN/CR 54/2.72. Sodium 136, potassium 4.2. Initial troponin 0 0.187, EKG shows paced rhythm with no ST elevation. Patient received 325 mg of aspirin as well as 2 mg of morphine in the emergency room. Allergies/Adverse Reactions: Allergy/AdvReac Type Severity Reaction Status Date / Time No Known Drug Allergies Allergy Verified 08/31/18 18:11 Home Medications: Medication Instructions Recorded Confirmed Type Amiodarone [Cordarone] 200 mg PO DAILY #0 tab 09/02/15 09/06/20 Rx Furosemide [Lasix] 80 mg PO BID 08/31/18 09/06/20 History Isosorbide Dinitrate [Isordil] 20 mg PO TID #45 tab 09/02/18 09/06/20 Rx Carvedilol 25 mg PO BID 09/06/20 09/06/20 History Nitroglycerin 0.4 mg SL Q5MIN PRN #30 tab.subl 09/07/20 Rx predniSONE 20 mg PO QAM-WM #9 tab 09/07/20 Rx traMADol HCl [Tramadol HCl] 50 mg PO Q6HR PRN #12 tablet 09/14/20 Rx Past History: PMHx: HFrEF EF 15 to 20% Chronic kidney disease baseline creatinine 2.7, AICD, hypertension Chronic stable angina Prior cocaine use, alcohol abuse PSHx: AICD placement FHx: No pertinent family history Social: Current tobacco use, denies alcohol use but formally heavy drinker Denies current drug use, endorses former cocaine use Hospitalist HPI ROS Constitutional: denies: fever, chills, sweats, weakness, malaise, other Eyes: denies: pain, vision change, conjunctivae inflammation, eyelid inflammation, redness, other ENT: denies: ear pain, ear discharge, nose pain, nose discharge, nose congestion, mouth pain, mouth swelling, throat pain, throat swelling, other Respiratory: denies: cough, dry, shortness of breath, hemoptysis, SOB with excertion, pleuritic pain, sputum, wheezing, other Cardiovascular: denies: chest pain, palpitations, orthopnea, paroxysmal noc. dyspnea, edema, light headedness, other Gastrointestinal: denies: nausea, vomiting, abdominal pain, diarrhea, constipation, melena, hematochezia, other Genitourinary: denies: dysuria, frequency, incontinence, hematuria, retention, other Musculoskeletal: reports: foot pain. denies: neck pain, shoulder pain, arm pain, back pain, hand pain, leg pain, other Skin: denies: rash, lesions, snow, bruising, other Neurological: denies: weakness, numbness, incoordination, change in speech, confusion, seizures, other Hospitalist Exam General Appearance: NAD, awake alert Eye: PERRL, anicteric sclera ENT: normocephalic atraumatic, no oropharyngeal lesions, moist mucosa Neck: supple, symmetric, no JVD, no thyromegaly, no lymphadenopathy, no carotid bruit Heart: RRR, no murmur, no gallops, no rubs, normal peripheral pulses Respiratory: CTAB, no wheezes, no rales, no ronchi, normal chest expansion, no tachypnea, normal percussion Gastrointestinal: soft, non-tender, non-distended, normal bowel sounds, no palpable masses, no hepatomegaly, no splenomegaly, no bruit Extremities - other findings: Great toe joints tender to palpation bilaterally, mild pedal edema Skin: normal turgor, no lesions, no rashes Neurological: cranial nerve grossly intact, normal sensation to touch, no weakness, no focal deficits, no new deficit Musculoskeletal: normal tone, normal strength, no muscle wasting Psychiatric: normal affect, normal behavior, A&O x 3 Hospitalist Results Result Diagrams: 09/07/20 04:50 09/07/20 04:50 Lab results: Laboratory Last Values WBC 12.2 thou/uL (4.8-10.8) H 09/05/20 13:08 RBC 5.30 mill/uL (4.70-6.10) 09/05/20 13:08 Hgb 16.1 g/dL (14.0-18.0) 09/05/20 13:08 Hct 48.5 % (42.0-52.0) 09/05/20 13:08 MCV 91.5 fL (78.0-98.0) 09/05/20 13:08 MCH 30.4 pg (27.0-31.0) 09/05/20 13:08 MCHC 33.2 g/dL (32.0-36.0) 09/05/20 13:08 RDW 14.2 % (11.5-14.5) 09/05/20 13:08 Plt Count 144 thou/uL (130-400) 09/05/20 13:08 MPV 11.0 fL (7.4-10.4) H 09/05/20 13:08 Neutrophils % 79.1 % (42.0-75.0) H 09/05/20 13:08 Lymphocytes % 11.8 % (21.0-51.0) L 09/05/20 13:08 Monocytes % 8.1 % (0.0-10.0) 09/05/20 13:08 Eosinophils % 0.9 % (0.0-10.0) 09/05/20 13:08 Basophils % 0.1 % (0.0-1.0) 09/05/20 13:08 Neutrophils # 9.7 thou/uL (1.40-6.50) H 09/05/20 13:08 Lymphocytes # 1.4 thou/uL (1.20-3.40) 09/05/20 13:08 Monocytes # 1.0 thou/uL (0.11-0.59) H 09/05/20 13:08 Eosinophils # 0.1 thou/uL (0.0-0.7) 09/05/20 13:08 Basophils # 0.0 thou/uL (0.0-0.2) 09/05/20 13:08 Sodium 136 mmol/L (136-145) 09/05/20 13:08 Potassium 4.2 mmol/L (3.5-5.1) 09/05/20 13:08 Chloride 102 mmol/L (98-107) 09/05/20 13:08 Carbon Dioxide 20 mmol/L (23-31) L 09/05/20 13:08 Anion Gap 18 mmol/L (10-20) 09/05/20 13:08 BUN 54 mg/dL (8.4-25.7) H 09/05/20 13:08 Creatinine 2.72 mg/dL (0.7-1.3) H 09/05/20 13:08 Estimated GFR (MDRD) 29 09/05/20 13:08 Glucose 102 mg/dL (80-115) 09/05/20 13:08 Calcium 9.5 mg/dL (7.8-10.44) 09/05/20 13:08 Total Bilirubin 0.6 mg/dL (0.2-1.2) 09/05/20 13:08 AST 75 U/L (5-34) H 09/05/20 13:08 ALT 26 U/L (8-55) 09/05/20 13:08 Alkaline Phosphatase 89 U/L (40-110) 09/05/20 13:08 CK-MB (CK-2) 22.8 ng/mL (0-6.6) H* 09/05/20 13:08 Troponin I 0.187 ng/mL (< 0.028) H 09/05/20 13:08 B-Natriuretic Peptide 631.9 pg/mL (0-100) H 09/05/20 13:08 Serum Total Protein 8.9 g/dL (5.8-8.1) H 09/05/20 13:08 Albumin 4.2 g/dL (3.4-4.8) 09/05/20 13:08 Globulin 4.7 g/dL (2.4-3.5) H 09/05/20 13:08 Albumin/Globulin Ratio 0.9 g/dL (1.2-2.2) L 09/05/20 13:08 Hospitalist H&P A/P Plan: Bilateral foot pain Patient with bilateral foot pain and swelling to great toe joints. Suspect gout versus peripheral vascular disease. Will send for uric acid, obtain lower extremity ultrasound. Patient reports rest pain and has dependent rubor. WBC 12.2, patient is afebrile. Low suspicion for infectious process at this time. Plan Uric acid Bilateral lower extremity ultrasound Pain control Elevated troponin Patient with mild elevation in troponin to 0.187. Patient denies chest pain. EKG shows paced rhythm with no ST changes. Patient does have history of CKD. Suspect likely elevated in setting of CKD. On review of records patient's troponin chronically elevated to approximately 0.08 0.09. Patient received 325 mg of aspirin in emergency room. Will trend troponin continue to monitor for symptoms and place on telemetry. Plan Telemetry Trend troponin Aspirin, lipid panel HFrEF History of heart failure with reduced ejection fraction. Last EF 15 to 20% on echo in 2019. Patient has AICD in place which he reports was placed 5 years ago. Patient concerned battery may need to be replaced. Patient initially reported shortness of breath to emergency room but states that he only holds his breath because of the pain in his foot and he does not have any shortness of breath when he is not in pain. His BNP was 631.9 which appears close to his baseline. Patient follows with Dr. Framer and has not seen him or his primary care provider in some time. Will repeat echocardiogram as it has been over a year. 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 Patient reports this was placed in [facility] over 5 years ago and he is concerned the battery may be low. Will interrogate pacemaker. Plan Interrogate pacemaker Follow-up with cardiology Chronic kidney disease Patient with chronic kidney disease baseline creatinine approximately 2.7. BUN/Cr today 54/2.72. Sodium 136, potassium 4.2. Patient ports no changes in his urine output. We will continue to trend kidney function avoid nephrotoxic agents were possible. Hypomagnesemia Magnesium low at 1.6. Due to cardiac history will maintain magnesium greater than 2 and potassium greater than 4. Will replete continue to monitor. DVT prophylaxisSQ heparin Full code Case discussed with attending physician, Dr. Watts.
[2020-09-05] MEDS ORDERED: Ondansetron ODT 4 MG TAB PO PRN (16:26)
[2020-09-05] MEDS ORDERED: Ondansetron PF 4 MG/2 ML Vial IVP PRN (16:26)
[2020-09-05] MEDS ORDERED: Acetaminophen 650 MG Suppository PR PRN (16:26)
[2020-09-05] MEDS ORDERED: Aspirin 325 MG TAB ONE (17:09)
--- NOTE | 2020-09-05 17:16 | ULT ---
Arterial duplex sonogram bilateral lower extremity HISTORY: Leg pain. Vascular disease. FINDINGS: Good color and spectral Doppler flow with triphasic waveform demonstrated within each common femoral, femoral, and popliteal artery and the right deep femoral artery. Biphasic waveform within the left deep femoral artery. No abnormally elevated peak systolic velocities. Monophasic flow documented within each posterior tibial artery and the right anterior tibial artery. Flow not detectable within the left anterior tibial artery or the dorsalis pedis arteries. IMPRESSION : Good arterial flow to each lower extremity without large vessel stenosis apparent. Dampened distal pu lsatilities suggest small vessel disease.
[2020-09-05 18:14] LABS: Troponin I 0.158 ng/mL (< 0.028)
[2020-09-05 19:53] LABS: Troponin I 0.148 ng/mL (< 0.028)
[2020-09-05] MEDS ORDERED: Acetaminophen 325 MG TAB ONE (20:27)
[2020-09-05] MEDS ORDERED: Acetaminophen 500 MG TAB ONE (23:44)
[2020-09-05] MEDS: Acetaminophen 325 MG TAB PO PRN (23:51)
[2020-09-06] MEDS ORDERED: Heparin 10,000 UNITS/ 10 ML VIAL ONE (00:25)
[2020-09-06] MEDS ORDERED: Furosemide 100 MG/10 ML VIAL ONE (01:12)
[2020-09-06 01:57] VITALS: BMI 26.7
[2020-09-06] MEDS: traMADol HCl 50 MG TAB PO PRN ×4 (03:19→22:06)
[2020-09-06] MEDS: Carvedilol 6.25 MG TAB PO SCH ×3 (04:26→17:58)
[2020-09-06] MEDS: Heparin 5,000 UNITS/ML VIAL SC SCH ×4 (05:12→22:09)
[2020-09-06 05:29] LABS: #Basophils 0.1 thou/uL (0.0-0.2); #Eosinphils 0.3 thou/uL (0.0-0.7); #Lymphocytes 2.2 thou/uL (1.20-3.40); #Monocytes 1.5 thou/uL (0.11-0.59); #Neutrophils 8.2 thou/uL (1.40-6.50); %Basophils 0.8 % (0.0-1.0); %Eosinophils 2.4 % (0.0-10.0); %Lymphocytes 18.1 % (21.0-51.0); %Monocytes 12.2 % (0.0-10.0); %Neutrophils 66.5 % (42.0-75.0); Hemoglobin 15.4 g/dL (14.0-18.0); Mean Corpuscular HGB CONC 31.3 g/dL (32.0-36.0); Mean Corpuscular Hemoglobin 28.2 pg (27.0-31.0); Mean Corpuscular Volume 90.1 fL (78.0-98.0); Platelet Count 156 thou/uL (130-400); RBC Distribution Width 14.4 % (11.5-14.5); Red Blood Cell (RBC) Count 5.45 mill/uL (4.70-6.10); White Blood Cell (WBC) Count 12.3 thou/uL (4.8-10.8)
[2020-09-06 05:33] LABS: Anion Gap 19 mmol/L (10-20); BUN (Urea Nitrogen) 50 mg/dL (8.4-25.7); Calc. Creatinine Clearance 34 mL/min (70-130); Calcium 9.7 mg/dL (7.8-10.44); Carbon Dioxide 21 mmol/L (23-31); Cardiac Risk 6.8 (Less than 4.5); Chloride 100 mmol/L (98-107); Cholesterol 253 mg/dl (< 200 Desired); Glucose 100 mg/dL (80-115); HDL Cholesterol 37 mg/dL (>60 Neg Risk); LDL Cholesterol, Calculated 174 mg/dL; Potassium 3.9 mmol/L (3.5-5.1); Sodium 136 mmol/L (136-145); Triglycerides 212 mg/dL (Less than 150)
[2020-09-06] MEDS ORDERED: methylPREDNISolone Sod Succ/PF 125 MG/2 ML VIAL IVP SCH (08:00)
[2020-09-06] MEDS: Aspirin 81 mg Enteric Coated Tablet PO SCH (08:55)
[2020-09-06] MEDS: Furosemide 80 MG TAB PO SCH ×2 (08:56→13:01)
[2020-09-06] MEDS: Acetaminophen 325 MG TAB PO PRN ×3 (09:54→22:07)
[2020-09-06 11:32] LABS: SARS-CoV-2 PCR NAA for Saliva Not Detected (NotDetected)
[2020-09-06] MEDS: methylPREDNISolone Sod Succ 40 MG VIAL IVP SCH ×2 (12:56→17:59)
--- NOTE | 2020-09-06 15:36 | PDOC.HOSPP ---
- Subjective Encounter Date: 09/06/20 Subjective: Patient reports continued pain in both of his feet at the first metatars ophalangeal joint. - Objective Vital Signs & Weight: Vital Signs (12 hours) Temp Pulse Resp BP BP Pulse Ox 09/06/20 11:23 97.9 F 71 16 106/64 98 09/06/20 08:56 118/85 09/06/20 07:29 97.8 F 72 16 118/85 98 09/06/20 04:00 97.9 F 79 16 120/92 H 97 Weight Weight 170 lb 12.8 oz I&O: 09/05/20 09/06/20 09/07/20 06:59 06:59 06:59 Intake Total 592 Output Total 400 640 Balance 192 -640 Result Diagrams: 09/06/20 04:26 09/06/20 04:26 Hospitalist ROS - Medication Medications: Active Medications Generic Name Dose Route Start Last Admin Trade Name Freq PRN Reason Stop Dose Admin Acetaminophen 650 mg 09/05/20 16:26 09/06/20 09:54 Acetaminophen 325 Mg Tab PO 650 mg Q4H PRN Administration Headache/Fever/Mild Pain (1-3) Aspirin 81 mg 09/06/20 09:00 09/06/20 08:55 Aspirin 81 Mg Enteric Coated Tablet PO 81 mg DAILY FRANKIE Administration Carvedilol 25 mg 09/05/20 17:00 09/06/20 08:56 Carvedilol 6.25 Mg Tab PO 25 mg BID-WM FRANKIE Administration Furosemide 80 mg 09/06/20 09:00 09/06/20 13:01 Furosemide 80 Mg Tab PO 80 mg 0900,1400 FRANKIE Administration Heparin Sodium (Porcine) 5,000 units 09/05/20 21:00 09/06/20 08:57 Heparin 5,000 Units/Ml Vial SC 5,000 units TID FRANKIE Administration Methylprednisolone Sodium Succinate 40 mg 09/06/20 12:00 09/06/20 12:56 Methylprednisolone Sod Succ 40 Mg Vial IVP 40 mg Q6HR FRANKIE Administration Tramadol HCl 50 mg 09/06/20 03:02 09/06/20 09:06 Tramadol Hcl 50 Mg Tab PO 50 mg Q6HR PRN Administration Pain Hospitalist Exam Vitals: Vital Signs (12 hours) Temp Pulse Resp BP BP Pulse Ox 09/06/20 11:23 97.9 F 71 16 106/64 98 02/19/21 08:56 118/85 09/06/20 07:29 97.8 F 72 16 118/85 98 09/06/20 04:00 97.9 F 79 16 120/92 H 97 Weight Weight 170 lb 12.8 oz General Appearance: NAD, awake alert Heart: RRR, no murmur, no gallops, no rubs, normal peripheral pulses Respiratory: CTAB, no wheezes, no rales, no ronchi, normal chest expansion, no tachypnea, normal percussion Gastrointestinal: soft, non-tender, non-distended, normal bowel sounds, no palpable masses, no hepatomegaly, no splenomegaly, no bruit Extremities: no cyanosis, no clubbing, no edema Extremities - other findings: Tenderness and warmth at the bilateral metatarsophalangeal joints Skin: normal turgor Neurological: no focal deficits Musculoskeletal: normal tone, normal strength, no muscle wasting Psychiatric: normal affect, normal behavior, A&O x 3 Hosp A/P (1) Gout flare Code(s): M10.9 - GOUT, UNSPECIFIED Status: Acute (2) CAD (coronary artery disease) Code(s): I25.10 - ATHSCL HEART DISEASE OF [place] CORONARY ARTERY W/O ANG PCTRS Status: Chronic (3) CKD (chronic kidney disease) stage 3, GFR 30-59 ml/min Status: Chronic (4) Cardiomyopathy Code(s): I42.9 - CARDIOMYOPATHY, UNSPECIFIED Status: Chronic (5) HLD (hyperlipidemia) Code(s): E78.5 - HYPERLIPIDEMIA, UNSPECIFIED Status: Chronic (6) HTN (hypertension) Code(s): I10 - ESSENTIAL (PRIMARY) HYPERTENSION Status: Chronic (7) Chronic combined systolic (congestive) and diastolic (congestive) heart failure Code(s): I50.42 - CHRONIC COMBINED SYSTOLIC AND DIASTOLIC HRT FAIL Status: Acute - Plan Bilateral foot pain gout flare: Patient with bilateral foot pain and swelling to great toe joints. Bilateral lower extremity Doppler did not reveal any significant large vessel occlusion. Some small vessel disease. Uric acid level is over 12. Consistent with gout. Patient has contraindications to colchicine due to medication interactions. Patient's renal function is not amenable to significant NSAIDs. IV Solu-Medrol. Once the patient's pain is improving we will transition to p.o. prednisone. Elevated troponin Chronic. At the patient's baseline. Cardiomyopathy/chronic combined systolic and diastolic acute (ICD CHF: History of heart failure with reduced ejection fraction. Last EF 15 to 20% on echo in 2019. Patient has AICD in place which he reports was placed 5 years ago. Patient concerned battery may need to be replaced. His BNP was 631.9 which appears close to his baseline. Patient follows with Dr. Farmer and has not seen him or his primary care provider in some time. Echocardiogram now reveals an ejection fraction of 10 to 15% with diastolic dysfunction as well. 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 Patient reports this was placed in [place] over 5 years ago and he is concerned the battery may be low. Will interrogate pacemaker. Chronic kidney disease Patient with chronic kidney disease baseline creatinine approximately 2.7. BUN/Cr on admission 54/2.72. We will continue to trend kidney function avoid nephrotoxic agents were possible. Hypomagnesemia Magnesium low at 1.6. Due to cardiac history will maintain magnesium greater than 2 and potassium greater than 4. Will replete continue to monitor. DVT prophylaxisSQ heparin Full code
[2020-09-07] MEDS: methylPREDNISolone Sod Succ 40 MG VIAL IVP SCH ×3 (00:01→11:06)
[2020-09-07 05:52] LABS: #Basophils 0.1 thou/uL (0.0-0.2); #Monocytes 0.4 thou/uL (0.11-0.59); %Basophils 0.5 % (0.0-1.0); %Eosinophils 0.1 % (0.0-10.0); %Lymphocytes 7.6 % (21.0-51.0); %Monocytes 3.2 % (0.0-10.0); %Neutrophils 88.6 % (42.0-75.0); Hemoglobin 14.7 g/dL (14.0-18.0); Mean Corpuscular HGB CONC 31.7 g/dL (32.0-36.0); Mean Corpuscular Hemoglobin 28.7 pg (27.0-31.0); Mean Corpuscular Volume 90.5 fL (78.0-98.0); Mean Platelet Volume 11.7 fL (7.4-10.4); Platelet Count 158 thou/uL (130-400); RBC Distribution Width 14.2 % (11.5-14.5); Red Blood Cell (RBC) Count 5.14 mill/uL (4.70-6.10); White Blood Cell (WBC) Count 13.5 thou/uL (4.8-10.8)
[2020-09-07 06:09] LABS: Anion Gap 18 mmol/L (10-20); BUN (Urea Nitrogen) 64 mg/dL (8.4-25.7); Calc. Creatinine Clearance 28 mL/min (70-130); Calcium 9.8 mg/dL (7.8-10.44); Carbon Dioxide 24 mmol/L (23-31); Chloride 98 mmol/L (98-107); Glucose 128 mg/dL (80-115); Potassium 4.3 mmol/L (3.5-5.1); Sodium 136 mmol/L (136-145)
[2020-09-07 07:27] VITALS: TEMP 97.6
[2020-09-07] MEDS: Carvedilol 6.25 MG TAB PO SCH (08:46)
[2020-09-07] MEDS: Aspirin 81 mg Enteric Coated Tablet PO SCH (08:46)
[2020-09-07] MEDS: traMADol HCl 50 MG TAB PO PRN (08:48)
[2020-09-07] MEDS: Acetaminophen 325 MG TAB PO PRN (08:49)
[2020-09-07] MEDS: Heparin 5,000 UNITS/ML VIAL SC SCH (08:50)
[2020-09-07 11:09] VITALS: BP 104/60
--- NOTE | 2020-09-07 15:37 | PDOC.DS.DS ---
Provider Date of Admission: 09/05/20 16:23 Date of Discharge: 09/07/20 Admitting Provider: Zhanna Watts MD Primary Care Physician: [facility] Course Hospital Course: Patient is a 64-year-old male with a history of significant cardiomyopathy who presented to the hospital reporting severe bilateral lower extremity pain. Pain appeared to be localized in the feet and primarily at the first metatarsal phalangeal joints. Bilateral foot pain gout flare: Patient with bilateral foot pain and swelling to great toe joints. Bilateral lower extremity Doppler did not reveal any significant large vessel occlusion. Some small vessel disease. Uric acid level is over 12. Consistent with gout. Patient has contraindications to colchicine due to medication interactions. Patient's renal function is not amenable to significant NSAIDs. IV Solu-Medrol was administered. He had significant improvement overnight. [place] to be stable for discharge to home on oral steroids. Elevated troponin Chronic. At the patient's baseline. Cardiomyopathy/chronic combined systolic and diastolic acute (ICD CHF: History of heart failure with reduced ejection fraction. Last EF 15 to 20% on echo in 2019. Patient has AICD in place which he reports was placed 5 years ago. Patient concerned battery may need to be replaced. His BNP was 631.9 which appears close to his baseline. Patient follows with Dr. Farmer and has not seen him or his primary care provider in some time. Echocardiogram now reveals an ejection fraction of 10 to 15% with diastolic dysfunction as well. 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 Patient reports this was placed in [place] over 5 years ago and he is concerned the battery may be low. Will interrogate pacemaker. Chronic kidney disease Patient with chronic kidney disease baseline creatinine approximately 2.7. BUN/Cr on admission 54/2.72. Hypomagnesemia Magnesium low at 1.6. Repleted Resuscitation Status: 09/05/20 16:26 Resuscitation Status Routine Co-Sign Provider: Resuscitation Status: FULL: Full Resuscitation Lab Results: 09/07/20 04:50 09/07/20 04:50 Abnormal Lab Results - Last 48 hrs 09/05/20 16:47: Uric Acid 12.1 H 09/05/20 16:47: Troponin I 0.158 H 09/05/20 19:16: Troponin I 0.148 H 09/06/20 04:26: Carbon Dioxide 21 L, BUN 50 H, Creatinine 2.46 H, Triglycerides 212 H, Cholesterol 253 H 09/06/20 04:26: WBC 12.3 H, MCHC 31.3 L, MPV 11.0 H, Lymphocytes % 18.1 L, Monocytes % 12.2 H, Neutrophils # 8.2 H, Monocytes # 1.5 H 09/07/20 04:50: BUN 64 H, Creatinine 2.91 H 09/07/20 04:50: WBC 13.5 H, MCHC 31.7 L, MPV 11.7 H, Neutrophils % 88.6 H, Lymphocytes % 7.6 L, Neutrophils # 12.0 H, Lymphocytes # 1.0 L Vitals: Vital Signs (12 hours) Temp Pulse Resp BP BP Pulse Ox 09/07/20 11:05 97.6 F 64 16 104/60 96 09/07/20 08:46 120/74 09/07/20 07:24 97.6 F 64 20 129/82 96 09/07/20 04:06 94 L 09/07/20 03:59 98.4 F 95 18 116/75 94 L Weight Weight 176 lb 14.4 oz Physical Exam: The patient was seen and examined on the day of discharge. General Appearance: NAD, awake alert Respiratory: CTAB, no wheezes, no rales, no ronchi, normal chest expansion Cardiovascular: RRR, no gallops, no rubs, II/IV Gastrointestinal: soft, non-tender, non-distended, normal bowel sounds Extremities: no cyanosis, no clubbing, no edema Extremities - other findings: Tenderness palpation at the MTPJ's significantly reduced Skin: normal turgor Musculoskeletal: normal tone, normal strength, no muscle wasting PSYCH: normal affect, normal behavior, A&O x 3 Problem (1) Gout flare Code(s): M10.9 - GOUT, UNSPECIFIED Status: Acute (2) CAD (coronary artery disease) Code(s): I25.10 - ATHSCL HEART DISEASE OF [place] CORONARY ARTERY W/O ANG PCTRS Status: Chronic (3) CKD (chronic kidney disease) stage 3, GFR 30-59 ml/min Status: Chronic (4) Cardiomyopathy Code(s): I42.9 - CARDIOMYOPATHY, UNSPECIFIED Status: Chronic (5) HLD (hyperlipidemia) Code(s): E78.5 - HYPERLIPIDEMIA, UNSPECIFIED Status: Chronic (6) HTN (hypertension) Code(s): I10 - ESSENTIAL (PRIMARY) HYPERTENSION Status: Chronic (7) Chronic combined systolic (congestive) and diastolic (congestive) heart failure Code(s): I50.42 - CHRONIC COMBINED SYSTOLIC AND DIASTOLIC HRT FAIL Status: Acute Plan Prescriptions: Nitroglycerin 0.4 mg SL Q5MIN PRN #30 tab.subl PRN Reason: Chest Pain predniSONE 20 mg PO QAM-WM #9 tab Home Medications: Medication Instructions Recorded Confirmed Type Amiodarone [Cordarone] 200 mg PO DAILY #0 tab 09/02/15 09/06/20 Rx Furosemide [Lasix] 80 mg PO BID 08/31/18 09/06/20 History Isosorbide Dinitrate [Isordil] 20 mg PO TID #45 tab 09/02/18 09/06/20 Rx Carvedilol 25 mg PO BID 09/06/20 09/06/20 History Nitroglycerin 0.4 mg SL Q5MIN PRN #30 tab.subl 09/07/20 Rx predniSONE 20 mg PO QAM-WM #9 tab 09/07/20 Rx Allergies: No Known Drug Allergies Allergy (Verified 08/31/18 18:11) Activity:: Activity as Tolerated Nourishment:: Heart Healthy Diet Referrals: [facility] [Primary Care Provider] - Damien Castro MD [Active] - Disposition: HOME Quality CORE MEASURES:: N/A
--- NOTE | 2020-09-09 04:12 | PQF ---
CLINICAL DOCUMENTATION CLARIFICATION FORM: Dear : Uday Rodriguez Date / Time: 09/09/20 0914 Please exercise your independent, professional judgment in responding to the clarification form. Clinical indicators are provided on the bottom of this form for your review In your clinical opinion based on clinical findings below, can you please specify Acuity of Combined CHF if: Please check appropriate box(es): HEART FAILURE: A. ACUITY [ ] Acute [ ] Acute on Chronic [ ] Chronic [ ] Other diagnosis, please specify [ ] Unable to determine Physician Signature: Date/Time: For continuity of documentation, please document condition throughout progress notes and discharge summary. Thank You To be completed by CDI/Coding staff for physician review: Present Clinical Indicators - Signs / Symptoms / Labs Results and Location in Medical Record [x] BNP 631.9, Troponin I 0.187; 0.158; 0.148 Laboratory 09/05 [x] BP 110/82, Pulse 80, Resp 22, Temp 98.7 Vital signs 09/05 [x] His signs and symptoms and evaluation are consistent with exacerbation of CHF ED notes p8 09/05 [x] Increased swelling to both of his feet H&P p1 09/05 [facility] [x] his BNP was 631.9 which appears closed to his baseline H&P p5 09/05 [facility] [x] HFrEF H&P p1 09/05 [facility] [x] TTE: EF 10-15% Procedure 09/05 Dr Quezada Present Risk Factors Results and Location in Medical Record [x] 64 year-old Male H&P p1 09/05 [facility] [x] s/p AICD H&P p1 09/05 [facility] [x] HTN H&P p1 09/05 [facility] [x] CKD H&P p1 09/05 [facility] [x] Smoker H&P p1 09/05 [facility] [x] HLD H&P p1 09/05 [facility] [x] CMP PN 09/06 Present Treatments Results and Location in Medical Record [x] IV Lasix 80 mg SEP 17 [x] Coreg 25 mg oral SEP 17 [x] Aspirin 325 mg oral SEP 17 [x] Daily weights H&P p5 09/05 [facility] [x] I&Os, monitor fluid status H&P p5 09/05 [facility] CDS/Rn Allergy Signature: Kim Trujillo [employer] Phone #: [facility] 0523 Date/Time: 09/09/20 0413 This is a permanent part of the Medical Record [facility]
== END 2020-09-07 12:50 | disposition home or self-care (01) | DRG 291 ==
LOC: ERS 11:57 → ERHOLD 16:23 → 2SE 09-06 01:05
PROVIDERS: ADMIT Internal Medicine; ATTEND Internal Medicine
PROC: 4B02XTZ Measurement of Cardiac Defibrillator, External Approach (ICD-10-PCS; principal; 2020-09-05)
DX: I13.0 Hypertensive heart and chronic kidney disease with heart failure and stage 1 through stage 4 chronic kidney disease, or unspecified chronic kidney disease (principal); I50.43 Acute on chronic combined systolic (congestive) and diastolic (congestive) heart failure; M10.9 Gout, unspecified; I42.7 Cardiomyopathy due to drug and external agent; Z20.822 Contact with and (suspected) exposure to COVID-19; E83.42 Hypomagnesemia; R77.8 Other specified abnormalities of plasma proteins; E78.5 Hyperlipidemia, unspecified; F17.210 Nicotine dependence, cigarettes, uncomplicated; F31.9 Bipolar disorder, unspecified; N18.30 Chronic kidney disease, stage 3 unspecified; Z95.810 Presence of automatic (implantable) cardiac defibrillator; T40.5X Poisoning by, adverse effect of and underdosing of cocaine; Z79.899 Other long term (current) drug therapy; Z79.02 Long term (current) use of antithrombotics/antiplatelets; Z79.52 Long term (current) use of systemic steroids
CPT/HCPCS: 36415; 71045; 80048; 80053; 80061; 82553; 83880; 84484; 84550; 85025; 87635; 93005; 93306; 93923; 94760; 96374; J1644; J1940; J2270; J2920; J2930; U0003; U0005

== ENCOUNTER 2020-09-14 07:24 | Emergency (ER) | payer OTHER ==
[2020-09-14] MEDS ORDERED: HYDROcodone/Acetaminophen 10/325 mg Tablet ONE (07:48)
[2020-09-14] MEDS ORDERED: Ondansetron ODT 4 MG TAB ONE (07:48)
== END 2020-09-14 08:09 | disposition home or self-care (01) ==
LOC: ERS 07:24
DX: M10.9 Gout, unspecified (principal); I13.0 Hypertensive heart and chronic kidney disease with heart failure and stage 1 through stage 4 chronic kidney disease, or unspecified chronic kidney disease; N18.9 Chronic kidney disease, unspecified; I50.9 Heart failure, unspecified; I25.10 Atherosclerotic heart disease of native coronary artery without angina pectoris; F17.290 Nicotine dependence, other tobacco product, uncomplicated; F17.210 Nicotine dependence, cigarettes, uncomplicated; Z79.899 Other long term (current) drug therapy
CPT/HCPCS: 99283; Q0162